=== PATIENT | male | born 1970 | race Caucasian/White ===

== ENCOUNTER 2021-02-23 22:41 | Emergency (ER) | payer OTHER | END 2021-02-24 04:03 | disposition home or self-care (01) | LOC: FER 22:41 | DX: M25.512 Pain in left shoulder (principal); M54.2 Cervicalgia; M25.562 Pain in left knee; Z88.7 Allergy status to serum and vaccine; V49.50XA Passenger injured in collision with unspecified motor vehicles in traffic accident, initial encounter; Y92.410 Unspecified street and highway as the place of occurrence of the external cause ==